=== PATIENT | male | born 1945 | race Caucasian/White ===

== ENCOUNTER → 2017-10-21 | Outpatient (CLI) | payer MEDICARE ==
[~2017-10-21] MED LIST: ASPI81EC; Altoprev20 MG PO; CALCA500CH; ERGO400; GLUC500; METO25ER PO; MULVITA; OMEP10ER; PRED20 PO; PRILOSEC PO; WARF2 PO; WARF5 PO
== END | disposition home or self-care (01) ==
LOC: LAB SHORT 10:30 → PLD 10:30
DX: D48.5 Neoplasm of uncertain behavior of skin (principal)
CPT/HCPCS: 88305

== ENCOUNTER 2018-09-29 13:11 | Day surgery (SDC) | payer MEDICARE ==
[~2018-09-29] VITALS: Ht 175.3 cm; Wt 69.6 kg
[~2018-09-29 13:11] MED LIST changes: +Aspirin EC81 MG PO; +Omeprazole20 M1 PO; -PRILOSEC PO
== END 2018-09-29 16:00 | disposition home or self-care (01) ==
LOC: ORSCSDS 13:11
PROVIDERS: Internal Medicine Gastroenterology
PROC: 0DB68ZX Excision of Stomach, Via Natural or Artificial Opening Endoscopic, Diagnostic (ICD-10-PCS; principal; 2018-09-29 14:45)
PROC: 0DB58ZX Excision of Esophagus, Via Natural or Artificial Opening Endoscopic, Diagnostic (ICD-10-PCS; principal; 2018-09-29 14:45)
DX: K22.70 Barrett's esophagus without dysplasia (principal); K31.7 Polyp of stomach and duodenum; K21.9 Gastro-esophageal reflux disease without esophagitis; K44.9 Diaphragmatic hernia without obstruction or gangrene; I48.0 Paroxysmal atrial fibrillation; E78.5 Hyperlipidemia, unspecified; Z79.01 Long term (current) use of anticoagulants; Z79.899 Other long term (current) drug therapy
CPT/HCPCS: 88305; J2704; J7120

== ENCOUNTER 2019-01-15 11:03 | Day surgery (SDC) | payer MEDICARE ==
[~2019-01-15] VITALS: Ht 175.3 cm; Wt 71.2 kg
[~2019-01-15 11:03] MED LIST changes: +LOVA40 PO; +OMEPRAZOLE20 MG PO; +TAMS.4ER PO; +TOPROL XL25 MG PO; +WARF6 PO
--- NOTE | 2019-01-15 12:28 | NUR ---
History, Chart, Medications and Allergies reviewed before start of procedure.Patient confirms NPO status and agrees with scheduled surgery. Patient States Post-Procedure ride home has been arranged. Lungs clear T/O to Auscultation.
--- NOTE | 2019-01-15 16:23 | NUR ---
"DAY SURGERY RN | DISCHARGE VSS. A/O. DENIES NAUSEA. TOLERATING PO FLUIDS AND FOOD. DISCHARGE INSTRUCTIONS AND RX GIVEN TO PATIENT WITH FAMILY PRESENT. PAIN MEDS GIVEN PER ORDERS. NO ISSUES. TAKEN IN WHEEL CHAIR TO FRONT ENTRANCE. IS RIDE HOME."
== END 2019-01-15 23:04 | disposition home or self-care (01) ==
LOC: ORSCMMR 11:03 → ORD 12:30 → ORSCMMR 12:30
PROVIDERS: Surgery
PROC: 0YUA4JZ Supplement Bilateral Inguinal Region with Synthetic Substitute, Percutaneous Endoscopic Approach (ICD-10-PCS; principal; 2019-01-15 12:30)
PROC: 8E0W4CZ Robotic Assisted Procedure of Trunk Region, Percutaneous Endoscopic Approach (ICD-10-PCS; principal; 2019-01-15 12:30)
DX: K40.20 Bilateral inguinal hernia, without obstruction or gangrene, not specified as recurrent (principal); I10 Essential (primary) hypertension; I48.0 Paroxysmal atrial fibrillation; Z79.01 Long term (current) use of anticoagulants; K21.9 Gastro-esophageal reflux disease without esophagitis; Z79.899 Other long term (current) drug therapy
CPT/HCPCS: 49650; S2900; A9270-GY; C1781; J0690; J1100; J1885; J2250; J2405; J2704; J2710; J3010; J7120

== ENCOUNTER 2021-11-21 07:25 | Day surgery (SDC) | payer OTHER ==
[~2021-11-21] VITALS: Ht 175.3 cm; Wt 71.5 kg
== END 2021-11-21 09:53 | disposition home or self-care (01) ==
LOC: ORSCSDS 07:25
PROVIDERS: Internal Medicine Gastroenterology
PROC: 0DB58ZX Excision of Esophagus, Via Natural or Artificial Opening Endoscopic, Diagnostic (ICD-10-PCS; principal; 2021-11-21 08:45)
PROC: 0DB68ZX Excision of Stomach, Via Natural or Artificial Opening Endoscopic, Diagnostic (ICD-10-PCS; principal; 2021-11-21 08:45)
PROC: 0D758ZZ Dilation of Esophagus, Via Natural or Artificial Opening Endoscopic (ICD-10-PCS; principal; 2021-11-21 08:45)
DX: K22.70 Barrett's esophagus without dysplasia (principal); R13.10 Dysphagia, unspecified; K44.9 Diaphragmatic hernia without obstruction or gangrene; K21.9 Gastro-esophageal reflux disease without esophagitis; K31.7 Polyp of stomach and duodenum; I77.810 Thoracic aortic ectasia; I48.0 Paroxysmal atrial fibrillation; Z79.899 Other long term (current) drug therapy
CPT/HCPCS: 88305; J2704; J7120

== ENCOUNTER 2023-11-20 08:17 | Day surgery (SDC) | payer OTHER ==
[~2023-11-20] VITALS: Ht 172.7 cm; Wt 67.4 kg
[~2023-11-20 08:17] MED LIST changes: +Lactated Ringer's 1,000 ML IV ONE; +Lactated Ringer's 1,000 ML ONE; +propofoL 50 ML IV ONE
[2023-11-20] MEDS ORDERED: Lactated Ringer's 1,000 ML IV ONE (09:09)
[2023-11-20 10:37] VITALS: BP 123/69
== END 2023-11-20 10:47 | disposition home or self-care (01) ==
LOC: ORSCSDS 08:17
PROVIDERS: Specialist
PROC: 0DBH8ZX Excision of Cecum, Via Natural or Artificial Opening Endoscopic, Diagnostic (ICD-10-PCS; principal; 2023-11-20 09:30)
DX: Z12.11 Encounter for screening for malignant neoplasm of colon (principal); D12.0 Benign neoplasm of cecum; K57.30 Diverticulosis of large intestine without perforation or abscess without bleeding; K22.70 Barrett's esophagus without dysplasia; Z79.899 Other long term (current) drug therapy; G25.0 Essential tremor; E78.5 Hyperlipidemia, unspecified; I48.91 Unspecified atrial fibrillation; Z79.01 Long term (current) use of anticoagulants
CPT/HCPCS: 88305; J2704; J7120

== ENCOUNTER 2024-12-08 12:32 | Day surgery (SDC) | payer OTHER ==
[~2024-12-08] VITALS: Ht 172.7 cm; Wt 70.4 kg
[~2024-12-08 12:32] MED LIST changes: +Balanced Salt Epinephrine Irrigation Solution 500 mL IR SCH; -Lactated Ringer's 1,000 ML IV ONE; -Lactated Ringer's 1,000 ML ONE; +Moxifloxacin HCL 0.5 MG/0.1 ML 0.4MLSYR LEFTEYE SCH; +Ondansetron 4 MG SoluTab MM PRN; +PHENYLEPHRINE\\TROPICAMIDE\\TETRACAINE OPHTHALMIC DILATING SOLN LEFTEYE PRN; +Povidone-Iodine 450 DROP/30 ML Solution LEFTEYE SCH; +Triamcinolone Inj Susp 40 MG / ML 1ML Vial INJ SCH; +Triamcinolone Inj Susp 40 MG / ML 1ML Vial ONE; -propofoL 50 ML IV ONE
[2024-12-08] MEDS ORDERED: ELIQUIS5 M3 PO (13:47)
[2024-12-08] MEDS ORDERED: Tetracaine HCl 0.5% Opth Soln 15 ml LEFTEYE ONE (14:13)
--- NOTE | 2024-12-08 14:20 | NUR ---
12/08/24 1420 Nena Gonzalez N 136/90 100% 10L BLOW BY O2 58 18
[2024-12-08 15:07] VITALS: BP 150/88
== END 2024-12-08 15:06 | disposition home or self-care (01) ==
LOC: ORSCSDS 12:32
PROVIDERS: Ophthalmology
PROC: 08RK3JZ Replacement of Left Lens with Synthetic Substitute, Percutaneous Approach (ICD-10-PCS; principal; 2024-12-08 14:30)
DX: H25.813 Combined forms of age-related cataract, bilateral (principal); H21.81 Floppy iris syndrome; Z79.899 Other long term (current) drug therapy; Z79.01 Long term (current) use of anticoagulants
CPT/HCPCS: A9270; J3301; V2632